=== PATIENT | female | born 1975 | race Caucasian/White ===

== ENCOUNTER 2017-08-01 21:12 | Emergency (ER) | payer MEDICAID ==
[~2017-08-01 21:12] MED LIST: AZIT250T13 PO; CYCL-1 PO; DIPH-423 PO; DIPH25CA83 PO; DIPH50CA3 PO; FERR142T6 PO; KETO10TA2 PO; MECL-111 PO; METH-360 PO; ONDA4TAB12 PO; SYN0.1T PO
[2017-08-01 21:28] VITALS: BP 133/88
== END 2017-08-01 21:30 | disposition left against medical advice (07) ==
LOC: ER 21:12
DX: S00.93XA Contusion of unspecified part of head, initial encounter (principal); Z53.21 Procedure and treatment not carried out due to patient leaving prior to being seen by health care provider; X58.XXXA Exposure to other specified factors, initial encounter; Y93.89 Activity, other specified; Y92.89 Other specified places as the place of occurrence of the external cause; Y99.8 Other external cause status

== ENCOUNTER 2017-08-15 06:25 | Emergency (ER) | payer MEDICAID ==
[~2017-08-15] VITALS: Ht 149.9 cm; Wt 94.0 kg
[2017-08-15 06:31] VITALS: BP 142/75
[2017-08-15] MEDS ORDERED: LEVO200T PO (07:02)
[2017-08-15] MEDS ORDERED: LEVO25TA2 PO (07:02)
[2017-08-15] MEDS ORDERED: ibuprofen tablet 400 MG TABLET PO ONE (07:10)
== END 2017-08-15 07:21 | disposition home or self-care (01) ==
LOC: ER 06:26
DX: S60.222A Contusion of left hand, initial encounter (principal); S60.221A Contusion of right hand, initial encounter; E11.9 Type 2 diabetes mellitus without complications; F15.10 Other stimulant abuse, uncomplicated; Z88.8 Allergy status to other drugs, medicaments and biological substances; Z76.0 Encounter for issue of repeat prescription; W18.30XA Fall on same level, unspecified, initial encounter; Y93.89 Activity, other specified; Y92.89 Other specified places as the place of occurrence of the external cause; Y99.8 Other external cause status
CPT/HCPCS: 73130; 99284; A6449

== ENCOUNTER 2018-02-14 08:37 | Emergency (ER) | payer MEDICAID ==
[~2018-02-14] VITALS: Ht 149.9 cm; Wt 97.9 kg
[~2018-02-14 08:37] MED LIST changes: +LEVO200T PO
[2018-02-14 09:45] LABS: BASOPHILS % (AUTO) 0.3 % (0-1); EOSINOPHILS # (AUTO) 0.6 X10'3 (0-0.9); EOSINOPHILS % (AUTO) 4.2 % (0-6); HEMATOCRIT 41.2 % (35.0-45.0); HEMOGLOBIN 13.9 g/dl (12.0-16.0); LYMPHOCYTES # (AUTO) 2.6 X10'3 (1.1-4.8); LYMPHOCYTES % (AUTO) 19.3 % (21-51); MEAN CORPUSCULAR HEMOGLOBIN 29.3 PG (27.0-31.0); MEAN CORPUSCULAR HGB CONC 33.7 % (33.0-36.5); MEAN CORPUSCULAR VOLUME 86.9 FL (78-98); MEAN PLATELET VOLUME 9.8 FL (7.4-10.4); MONOCYTES # (AUTO) 0.5 X10'3 (0-0.9); MONOCYTES % (AUTO) 3.7 % (2-12); NEUTROPHILS # (AUTO) 9.9 X10'3 (1.8-7.7); NEUTROPHILS % (AUTO) 72.5 % (42-75); PLATELET COUNT 282 X10'3 (140-440); RED BLOOD COUNT 4.75 X10'6 (4.20-5.60); RED CELL DISTRIBUTION WIDTH 13.4 % (11.5-14.5); WHITE BLOOD COUNT 13.7 X10'3 (4.5-11.0)
[2018-02-14] MEDS ORDERED: pantoprazole 40mg Tablet.DR PO ONE (10:00)
[2018-02-14] MEDS ORDERED: mag hydrox/Alum hydrox/simeth 30ml oral suspension PO ONE (10:00)
[2018-02-14 10:12] LABS: ALANINE AMINOTRANSFERASE 20 U/L (12-78); ALBUMIN 3.1 G/DL (3.4-5.0); ALBUMIN/GLOBULIN RATIO 0.7 (1.1-1.5); ALKALINE PHOSPHATASE 121 IU/L (46-116); ANION GAP 13 (8-16); ASPARTATE AMINO TRANSFERASE 9 U/L (10-37); BILIRUBIN,TOTAL 0.2 MG/DL (0.1-1.0); BLOOD UREA NITROGEN 11 MG/DL (7-18); BUN/CREATININE RATIO 15.9 (6.6-38.0); CALCIUM 9.2 MG/DL (8.5-10.1); CHLORIDE 97 MMOL/L (99-107); CREATININE 0.69 MG/DL (0.40-0.90); GLUCOSE 224 MG/DL (70-104); POTASSIUM 3.9 MMOL/L (3.5-5.1); SODIUM 134 MMOL/L (135-145); TOTAL CARBON DIOXIDE 24.1 MMOL/L (24-32); TOTAL PROTEIN 7.8 G/DL (6.4-8.2); eGFR > 90 ML/MIN
[2018-02-14 10:40] LABS: URINE HCG NEGATIVE (NEG)
[2018-02-14 11:06] LABS: CLARITY,URINE SLIGHTLY CLOUDY (Clear); COLOR,URINE YELLOW (Yellow); GLUCOSE, URINE >=1000 mg/dl (Neg); KETONES,URINE NEGATIVE (Neg); LEUKOCYTE ESTERASE ,URINE NEGATIVE (Neg); NITRITES, URINE NEGATIVE (Neg); OCCULT BLOOD,URINE NEGATIVE (Neg); PROTEIN,URINE NEGATIVE (Neg); UROBILINOGEN,URINE 0.2 E.U/dL (0.2-1.0)
[2018-02-14 11:07] LABS: UA COLLECTION TYPE CLN CATCH MIDSTREAM
[2018-02-14 11:16] LABS: BACTERIA,URINE 4+ /HPF (Neg); RBC,URINE NONE SEEN /HPF (0-2); SQUAMOUS EPITHELIAL CELL,UR MANY /LPF (FEW); WBC,URINE NONE SEEN /HPF (0-4)
[2018-02-14 11:18] VITALS: BP 132/97
== END 2018-02-14 11:19 | disposition home or self-care (01) ==
LOC: ER 08:37
DX: R10.30 Lower abdominal pain, unspecified (principal); E11.9 Type 2 diabetes mellitus without complications; G89.29 Other chronic pain; F15.90 Other stimulant use, unspecified, uncomplicated; Z90.710 Acquired absence of both cervix and uterus; Z88.8 Allergy status to other drugs, medicaments and biological substances; Z79.2 Long term (current) use of antibiotics; Z79.899 Other long term (current) drug therapy; Z56.0 Unemployment, unspecified
CPT/HCPCS: 36415; 80053; 81001; 81025; 85025; 99283

== ENCOUNTER 2018-06-11 09:14 | Emergency (ER) | payer MEDICAID ==
[~2018-06-11] VITALS: Ht 149.9 cm; Wt 93.0 kg
[2018-06-11 09:17] VITALS: BP 121/88
== END 2018-06-11 10:20 | disposition home or self-care (01) ==
LOC: ER 09:14
DX: R14.0 Abdominal distension (gaseous) (principal); F17.200 Nicotine dependence, unspecified, uncomplicated; R06.2 Wheezing; E11.9 Type 2 diabetes mellitus without complications; E07.9 Disorder of thyroid, unspecified; G89.29 Other chronic pain; F15.90 Other stimulant use, unspecified, uncomplicated; Z90.710 Acquired absence of both cervix and uterus; Z56.0 Unemployment, unspecified; Z88.8 Allergy status to other drugs, medicaments and biological substances; Z79.2 Long term (current) use of antibiotics; Z79.899 Other long term (current) drug therapy
CPT/HCPCS: 99281

== ENCOUNTER 2019-05-18 15:30 | Emergency (ER) | payer MEDICAID ==
[~2019-05-18] VITALS: Ht 149.9 cm; Wt 93.9 kg
[~2019-05-18 15:30] MED LIST changes: -MECL-111 PO; +MECL-159 PO
[2019-05-18 16:05] LABS: BASOPHILS # (AUTO) 0.1 X10'3 (0-0.2); BASOPHILS % (AUTO) 1.1 % (0-1); EOSINOPHILS # (AUTO) 0.1 X10'3 (0-0.9); EOSINOPHILS % (AUTO) 1.1 % (0-6); HEMATOCRIT 41.9 % (35.0-45.0); HEMOGLOBIN 14.2 g/dl (12.0-16.0); LYMPHOCYTES # (AUTO) 3.5 X10'3 (1.1-4.8); LYMPHOCYTES % (AUTO) 27.3 % (21-51); MEAN CORPUSCULAR HGB CONC 33.8 g/dL (33.0-36.5); MEAN CORPUSCULAR VOLUME 88.8 FL (78-98); MEAN PLATELET VOLUME 10.4 FL (7.4-10.4); MONOCYTES # (AUTO) 0.6 X10'3 (0-0.9); MONOCYTES % (AUTO) 5.1 % (2-12); NEUTROPHILS # (AUTO) 8.2 X10'3 (1.8-7.7); NEUTROPHILS % (AUTO) 65.4 % (42-75); PLATELET COUNT 306 X10'3 (140-440); RED BLOOD COUNT 4.72 X10'6 (4.20-5.60); RED CELL DISTRIBUTION WIDTH 13.8 % (11.5-14.5); WHITE BLOOD COUNT 12.6 X10'3 (4.5-11.0)
[2019-05-18 16:14] LABS: ALANINE AMINOTRANSFERASE 21 U/L (12-78); ALBUMIN 3.1 G/DL (3.4-5.0); ALBUMIN/GLOBULIN RATIO 0.7 (1.1-1.5); ALKALINE PHOSPHATASE 84 IU/L (46-116); ANION GAP 7 (8-16); ASPARTATE AMINO TRANSFERASE 12 U/L (10-37); BILIRUBIN,TOTAL 0.2 MG/DL (0.1-1.0); BLOOD UREA NITROGEN 14 MG/DL (7-18); BUN/CREATININE RATIO 15.6 (6.6-38.0); CALCIUM 8.8 MG/DL (8.5-10.1); CHLORIDE 104 MMOL/L (99-107); GLUCOSE 168 MG/DL (70-104); POTASSIUM 3.9 MMOL/L (3.5-5.1); SODIUM 139 MMOL/L (135-145); TOTAL CARBON DIOXIDE 28.2 MMOL/L (24-32); TOTAL PROTEIN 7.4 G/DL (6.4-8.2); eGFR 68 ML/MIN
[2019-05-18 16:31] LABS: LARGE PLATELETS FEW; PLATELET ESTIMATE NORMAL; TOTAL CELLS COUNTED 100
[2019-05-18 16:35] VITALS: BP 154/93
== END 2019-05-18 17:22 | disposition home or self-care (01) ==
LOC: ER 15:30
DX: R07.89 Other chest pain (principal); E11.9 Type 2 diabetes mellitus without complications; G89.29 Other chronic pain; F15.90 Other stimulant use, unspecified, uncomplicated; F17.210 Nicotine dependence, cigarettes, uncomplicated; Z90.710 Acquired absence of both cervix and uterus; Z56.0 Unemployment, unspecified; Z88.8 Allergy status to other drugs, medicaments and biological substances; Z79.2 Long term (current) use of antibiotics; Z79.899 Other long term (current) drug therapy
CPT/HCPCS: 36415; 71045; 80053; 84484; 85025; 93005; 99285

== ENCOUNTER 2019-10-02 08:36 | Inpatient (IN) | payer MEDICAID ==
[~2019-10-02] VITALS: Ht 149.9 cm; Wt 100.0 kg
[2019-10-02] MEDS ORDERED: normal saline 1000ML IV soln IVB ONE (08:55)
[2019-10-02] MEDS: morphine 4 MG/ML inj SYRINge IV PRN ×2 (09:25→09:51)
[2019-10-02 09:30] LABS: BASOPHILS # (AUTO) 0.1 X10'3 (0-0.2); BASOPHILS % (AUTO) 1.1 % (0-1); EOSINOPHILS # (AUTO) 0.2 X10'3 (0-0.9); EOSINOPHILS % (AUTO) 1.3 % (0-6); HEMATOCRIT 40.9 % (35.0-45.0); HEMOGLOBIN 13.4 g/dl (12.0-16.0); LYMPHOCYTES # (AUTO) 3.6 X10'3 (1.1-4.8); LYMPHOCYTES % (AUTO) 29.3 % (21-51); MEAN CORPUSCULAR HEMOGLOBIN 29.5 PG (27.0-31.0); MEAN CORPUSCULAR HGB CONC 32.9 g/dL (33.0-36.5); MEAN CORPUSCULAR VOLUME 89.7 FL (78-98); MEAN PLATELET VOLUME 10.6 FL (7.4-10.4); MONOCYTES # (AUTO) 0.7 X10'3 (0-0.9); MONOCYTES % (AUTO) 5.6 % (2-12); NEUTROPHILS # (AUTO) 7.6 X10'3 (1.8-7.7); NEUTROPHILS % (AUTO) 62.7 % (42-75); PLATELET COUNT 286 X10'3 (140-440); RED BLOOD COUNT 4.56 X10'6 (4.20-5.60); RED CELL DISTRIBUTION WIDTH 14.1 % (11.5-14.5); WHITE BLOOD COUNT 12.1 X10'3 (4.5-11.0)
--- NOTE | 2019-10-02 09:32 | NUR ---
US at bedside
[2019-10-02 10:14] LABS: ALANINE AMINOTRANSFERASE 19 U/L (12-78); ALBUMIN 2.9 G/DL (3.4-5.0); ALBUMIN/GLOBULIN RATIO 0.7 (1.1-1.5); ALKALINE PHOSPHATASE 74 IU/L (46-116); ANION GAP 10 (8-16); ASPARTATE AMINO TRANSFERASE 12 U/L (10-37); BILIRUBIN,TOTAL 0.2 MG/DL (0.1-1.0); BLOOD UREA NITROGEN 12 MG/DL (7-18); BUN/CREATININE RATIO 13.6 (6.6-38.0); CALCIUM 9.4 MG/DL (8.5-10.1); CHLORIDE 104 MMOL/L (99-107); CREATININE 0.88 MG/DL (0.40-0.90); ETHANOL < 0.010 GM/DL (0.0-0.010); GLUCOSE 187 MG/DL (70-104); LIPASE 100 U/L (73-393); POTASSIUM 3.8 MMOL/L (3.5-5.1); SODIUM 138 MMOL/L (135-145); TOTAL CARBON DIOXIDE 23.7 MMOL/L (24-32); TOTAL PROTEIN 6.8 G/DL (6.4-8.2); eGFR 70 ML/MIN
[2019-10-02 10:25] LABS: URINE HCG NEGATIVE (NEG)
[2019-10-02 10:26] LABS: CLARITY,URINE CLEAR (Clear); COLOR,URINE YELLOW (Yellow); GLUCOSE, URINE NEGATIVE (Neg); KETONES,URINE NEGATIVE (Neg); LEUKOCYTE ESTERASE ,URINE NEGATIVE (Neg); NITRITES, URINE NEGATIVE (Neg); OCCULT BLOOD,URINE NEGATIVE (Neg); PROTEIN,URINE NEGATIVE (Neg); UROBILINOGEN,URINE 0.2 E.U/dL (0.2-1.0)
[2019-10-02 10:27] LABS: UA COLLECTION TYPE CLN CATCH MIDSTREAM
[2019-10-02 10:31] LABS: URINE AMPHETAMINE SCREEN POSITIVE (Neg); URINE BARBITUATE SCREEN NEGATIVE (Neg); URINE BENZODIAZEPINES SCREEN NEGATIVE (Neg); URINE CANNABINOID SCREEN NEGATIVE (Neg); URINE COCAINE SCREEN NEGATIVE (Neg); URINE METHADONE SCREEN NEGATIVE (Neg); URINE OPIATE SCREEN POSITIVE (Neg); URINE PHENCYCLIDINE SCREEN NEGATIVE (Neg)
[2019-10-02] MEDS ORDERED: METF500T PO (11:07)
[2019-10-02] MEDS: normal saline 1000ml 1,000 ML IV SCH ×2 (11:22→21:22)
[2019-10-02] MEDS ORDERED: ondansetron/PF 4mg/2ml inj IV PRN (11:25)
[2019-10-02] MEDS ORDERED: morphine 2 MG/ML inj. syringe IV PRN ×2 (11:25)
[2019-10-02] MEDS ORDERED: magnesium hydroxide 30ml (MOM) UD suspension PO PRN (11:25)
[2019-10-02] MEDS ORDERED: HYDROcodone/acetaminophen 10/325mg tab PO PRN (11:25)
[2019-10-02] MEDS ORDERED: HYDROcodone/acetaminophen 5mg/325mg tablet PO PRN (11:25)
[2019-10-02] MEDS ORDERED: acetaminophen 325mg tablet PO PRN ×2 (11:25)
[2019-10-02] MEDS ORDERED: mag hydrox/Alum hydrox/simeth 30ml oral suspension PO PRN (11:25)
[2019-10-02] MEDS ORDERED: metoclopramide 5 mg/ml inj IV PRN (11:25)
[2019-10-02 11:48] LABS: HEMOGLOBIN A1C 7.2 % (4.5-6.2)
--- NOTE | 2019-10-02 12:14 | NUR ---
Patient in room ED 11. I have received report from Leeann BRUNO at ED and had the opportunity to ask questions and assume patient care.
[2019-10-02] MEDS ORDERED: dextrose 50%-water 50ml dispensing syringe IV PRN ×2 (12:40)
[2019-10-02] MEDS ORDERED: dextrose ORAL solution 15 GM/59 ML bottle PO PRN ×2 (12:40)
[2019-10-02] MEDS ORDERED: insulin Lispro (HumaLOG) vial - multi-dose SQ SCH (12:40)
[2019-10-02] MEDS ORDERED: MESSAGE TO PHARMACY PO ONE (12:40)
[2019-10-02] MEDS ORDERED: sincalide inj 2 MCG in normal saline 50ml IV soln 50 ML IV PRN (12:40)
[2019-10-02] MEDS ORDERED: glucagon, human recombinant 1mg kit SUBCUT PRN (12:40)
[2019-10-02] MEDS ORDERED: LEVO150T8 PO (12:45)
[2019-10-02] MEDS ORDERED: sincalide inj 2 MCG in normal saline 100ml IV soln 100 ML IV PRN (13:54)
[2019-10-02] MEDS ORDERED: morphine 4 MG/ML inj SYRINge IV ONE (16:35)
--- NOTE | 2019-10-02 18:00 | NUR ---
MEDICATION ADMINISTERED WHEN PT WENT TO [facility] TO GET A HIDA SCAN. MED GIVEN AT NUCLEAR CT SITE. MARIYA THE TECH WITNESS AND HAD ME SIGN A DOCUMENT WHERE ADMINISTRATION WAS RECORDED AND THERE WAS NO REACTION TO THE 4MG OF MORPHINE. RECORD OF ADMINISTRATION IS AT NUCLEAR MEDICINE SITE. SPOKE TO DELIO CHARGE NURSE AND SHE IS AWARE OF THE SCANNING ISSUE. PHARMACY,[place] WAS NOTIFY OF THE ISSUE WELL.
--- NOTE | 2019-10-02 18:15 | NUR ---
Problems reprioritized. Patient report given, questions answered & plan of care reviewed with JOSEPH Messina RN.
--- NOTE | 2019-10-02 18:29 | NUR ---
Dr Encarnacion confirmed pt will not go to surgery tonight, okay to feed pt dinner now and NPO at midnight. Changed diet to CC, ordered tray, placed order for NPO @ midnight.
--- NOTE | 2019-10-02 18:30 | NUR ---
Patient in room [facility]. I have received report from KIANA Toro and had the opportunity to ask questions and assume patient care.
[2019-10-02 20:00] VITALS: BP 125/76
[2019-10-02] MEDS ORDERED: insulin glargine (Lantus) pen - multi-dose SQ SCH (21:00)
[2019-10-03] VITALS: BP 107/68
[2019-10-03 05:24] LABS: BASOPHILS # (AUTO) 0.1 X10'3 (0-0.2); BASOPHILS % (AUTO) 0.8 % (0-1); EOSINOPHILS # (AUTO) 0.2 X10'3 (0-0.9); EOSINOPHILS % (AUTO) 1.5 % (0-6); HEMATOCRIT 37.2 % (35.0-45.0); HEMOGLOBIN 12.2 g/dl (12.0-16.0); LYMPHOCYTES % (AUTO) 33.6 % (21-51); MEAN CORPUSCULAR HEMOGLOBIN 29.5 PG (27.0-31.0); MEAN CORPUSCULAR HGB CONC 32.7 g/dL (33.0-36.5); MONOCYTES # (AUTO) 0.5 X10'3 (0-0.9); MONOCYTES % (AUTO) 4.5 % (2-12); NEUTROPHILS # (AUTO) 7.2 X10'3 (1.8-7.7); NEUTROPHILS % (AUTO) 59.6 % (42-75); PLATELET COUNT 253 X10'3 (140-440); RED BLOOD COUNT 4.14 X10'6 (4.20-5.60); RED CELL DISTRIBUTION WIDTH 14.1 % (11.5-14.5); WHITE BLOOD COUNT 12.1 X10'3 (4.5-11.0)
[2019-10-03 05:32] LABS: ALBUMIN 2.4 G/DL (3.4-5.0); ANION GAP 5 (8-16); BLOOD UREA NITROGEN 8 MG/DL (7-18); BUN/CREATININE RATIO 9.2 (6.6-38.0); CALCIUM 8.1 MG/DL (8.5-10.1); CHLORIDE 105 MMOL/L (99-107); CREATININE 0.87 MG/DL (0.40-0.90); GLUCOSE 131 MG/DL (70-104); POTASSIUM 3.9 MMOL/L (3.5-5.1); SODIUM 137 MMOL/L (135-145); TOTAL CARBON DIOXIDE 26.8 MMOL/L (24-32); eGFR 71 ML/MIN
--- NOTE | 2019-10-03 06:24 | NUR ---
Problems reprioritized. Patient report given, questions answered & plan of care reviewed with KIANA Dubon.
[2019-10-03 06:51] LABS: TOTAL CELLS COUNTED 100
[2019-10-03 06:52] LABS: PLATELET ESTIMATE NORMAL
[2019-10-03 06:54] LABS: LARGE PLATELETS MODERATE; SMUDGE CELLS FEW
[2019-10-03 06:55] LABS: POIKILOCYTOSIS FEW
[2019-10-03 06:56] LABS: ELLIPTOCYTES FEW
[2019-10-03 06:57] LABS: ACANTHOCYTES FEW; ANISOCYTOSIS FEW; TOXIC GRANULATION 1+
[2019-10-03 07:00] VITALS: BP 133/79
[2019-10-03] MEDS ORDERED: levoTHYROXINE 75mcg tablet PO SCH (07:00)
--- NOTE | 2019-10-03 07:05 | NUR ---
I have received report from Shannan Sutherland RN and had the opportunity to ask questions and assume patient care.
[2019-10-03] MEDS: normal saline 1000ml 1,000 ML IV SCH (07:22)
[2019-10-03] MEDS ORDERED: levoTHYROXINE 100mcg tablet PO SCH ×2 (08:00)
[2019-10-03] MEDS ORDERED: metFORMIN 500mg tablet PO SCH (08:00)
--- NOTE | 2019-10-03 09:30 | NUR ---
Dr Barrera notified patient is refusing surgery.
[2019-10-03 10:32] LABS: PARTIAL THROMBOPLASTIN TIME 26 SECONDS (22-32)
[2019-10-03] MEDS ORDERED: LEVO500T2 PO (10:49)
[2019-10-03] MEDS ORDERED: METR-159 PO (10:49)
[2019-10-03] MEDS ORDERED: METF-950 PO (10:51)
--- NOTE | 2019-10-03 10:51 | NUR ---
Patient to be discharged, [place] at patients expense and request.
--- NOTE | 2019-10-03 11:16 | NUR ---
Patient discharged. WC to lobby by staff, IV discontinued intact, patient tolerated well. VS stable, no distress noted. Education completed with acknowledgement from patient verbally. Paper work reviewed and signed. Patient aware of next doses for home medications. No new medication on admit.
--- NOTE | 2019-10-03 11:25 | NUR ---
DM Consult: A1C 7.5. Pt seen by YNES for written/verbal DM ed w/ RD contact information provided. Pt quite passive during ed; denies food allergies, issues chewing swallowing, or any GI symptoms at this time. Addendum: 10/03/19 at [address] Amended: Links added.
== END 2019-10-03 11:16 | disposition home or self-care (01) ==
LOC: ER 08:37 → ED HOLD 11:22 → SUR 3N 12:19 → OBSVTOIN 14:00
PROVIDERS: ADMIT Internal Medicine; ATTEND Internal Medicine
DX: K80.00 Calculus of gallbladder with acute cholecystitis without obstruction (principal); E03.9 Hypothyroidism, unspecified; E11.9 Type 2 diabetes mellitus without complications; E66.01 Morbid (severe) obesity due to excess calories; F17.210 Nicotine dependence, cigarettes, uncomplicated; K82.8 Other specified diseases of gallbladder; Z68.41 Body mass index [BMI] 40.0-44.9, adult; Z79.84 Long term (current) use of oral hypoglycemic drugs; Z90.710 Acquired absence of both cervix and uterus; R16.0 Hepatomegaly, not elsewhere classified
CPT/HCPCS: 36415; 71045; 74176; 76700; 78227; 80048; 80053; 80305; 80320; 81003; 81025; 82948; 83036; 83690; 83880; 85025; 85610; 85730; 87081; 96361; 96374; 99285; A9537; G0378; J1815; J2270; J7030

== ENCOUNTER 2020-01-15 18:44 | Emergency (ER) | payer MEDICAID ==
[~2020-01-15] VITALS: Ht 149.9 cm; Wt 97.7 kg
[~2020-01-15 18:44] MED LIST changes: -AZIT250T13 PO; -CYCL-1 PO; -DIPH-423 PO; -DIPH25CA83 PO; -DIPH50CA3 PO; -FERR142T6 PO; -KETO10TA2 PO; +LEVO150T8 PO; -LEVO200T PO; -MECL-159 PO; -METH-360 PO; -ONDA4TAB12 PO; -SYN0.1T PO
[2020-01-15 18:47] VITALS: BP 149/94
== END 2020-01-15 19:22 | disposition home or self-care (01) ==
LOC: ER 18:45
DX: J06.9 Acute upper respiratory infection, unspecified (principal); Z20.828 Contact with and (suspected) exposure to other viral communicable diseases; E11.9 Type 2 diabetes mellitus without complications; G89.29 Other chronic pain; F17.210 Nicotine dependence, cigarettes, uncomplicated; F15.90 Other stimulant use, unspecified, uncomplicated; Z90.710 Acquired absence of both cervix and uterus; Z56.0 Unemployment, unspecified; Z88.8 Allergy status to other drugs, medicaments and biological substances; Z79.899 Other long term (current) drug therapy
CPT/HCPCS: 36415; 87635; 99283

== ENCOUNTER 2021-12-19 22:12 | Emergency (ER) | payer MEDICAID ==
[~2021-12-19] VITALS: Ht 149.9 cm; Wt 95.5 kg
[2021-12-19 22:19] VITALS: BP 126/82
[2021-12-20] MEDS ORDERED: HYDR28CR14 TOP (02:49)
[2021-12-20] MEDS ORDERED: DIPH-423 PO (02:49)
== END 2021-12-20 00:48 | disposition left against medical advice (07) ==
LOC: ER 22:13
DX: R21 Rash and other nonspecific skin eruption (principal); Z53.21 Procedure and treatment not carried out due to patient leaving prior to being seen by health care provider

== ENCOUNTER 2021-12-20 02:08 | Emergency (ER) | payer MEDICAID ==
[~2021-12-20] VITALS: Ht 162.6 cm; Wt 81.8 kg
[2021-12-20] MEDS ORDERED: DIPH-423 PO (02:49)
[2021-12-20] MEDS ORDERED: HYDR28CR14 TOP (02:49)
[2021-12-20 02:50] VITALS: BP 126/80
[2021-12-20] MEDS ORDERED: hydrocortisone 1% cream 28gm TP SCH (02:50)
[2021-12-20] MEDS ORDERED: diphenhydrAMINE 25mg capsule PO ONE (02:50)
== END 2021-12-20 03:27 | disposition home or self-care (01) ==
LOC: ER 02:09
DX: R21 Rash and other nonspecific skin eruption (principal); E11.9 Type 2 diabetes mellitus without complications; G89.29 Other chronic pain; M54.50 Low back pain, unspecified; F15.20 Other stimulant dependence, uncomplicated; Z88.8 Allergy status to other drugs, medicaments and biological substances; Z90.710 Acquired absence of both cervix and uterus; Z56.0 Unemployment, unspecified
CPT/HCPCS: 99283; Q0163

== ENCOUNTER 2021-12-25 22:53 | Emergency (ER) | payer MEDICAID ==
[~2021-12-25 22:53] MED LIST changes: +DIPH-423 PO; +HYDR28CR14 TOP
== END 2021-12-25 23:17 | disposition left against medical advice (07) ==
LOC: ER 22:54
DX: H92.09 Otalgia, unspecified ear (principal); Z53.21 Procedure and treatment not carried out due to patient leaving prior to being seen by health care provider

== ENCOUNTER 2022-02-08 16:02 | Emergency (ER) | payer MEDICAID ==
[~2022-02-08] VITALS: Ht 149.9 cm; Wt 108.0 kg
[2022-02-08 16:06] VITALS: BP 152/128
== END 2022-02-08 20:23 | disposition left against medical advice (07) ==
LOC: ER 16:03
DX: M54.59 Other low back pain (principal); Z53.21 Procedure and treatment not carried out due to patient leaving prior to being seen by health care provider

== ENCOUNTER 2022-03-19 10:51 | Emergency (ER) | payer MEDICAID ==
[~2022-03-19] VITALS: Ht 154.9 cm; Wt 100.0 kg
[2022-03-19 11:05] VITALS: BP 163/92
[2022-03-19] MEDS ORDERED: HYDROcodone/acetaminophen 5mg/325mg tablet PO ONE (12:20)
[2022-03-19] MEDS ORDERED: HYDR-3965 PO (13:57)
== END 2022-03-19 14:07 | disposition home or self-care (01) ==
LOC: ER 10:52
DX: M54.50 Low back pain, unspecified (principal); E11.9 Type 2 diabetes mellitus without complications; G89.29 Other chronic pain; F15.90 Other stimulant use, unspecified, uncomplicated; F17.210 Nicotine dependence, cigarettes, uncomplicated; Z56.0 Unemployment, unspecified; Z88.8 Allergy status to other drugs, medicaments and biological substances; Z79.899 Other long term (current) drug therapy
CPT/HCPCS: 72100; 99283

== ENCOUNTER 2022-05-19 07:45 | Emergency (ER) | payer MEDICAID ==
[~2022-05-19] VITALS: Ht 149.9 cm; Wt 107.6 kg
[2022-05-19 10:14] VITALS: BP 133/81
== END 2022-05-19 10:34 | disposition home or self-care (01) ==
LOC: ER 07:45
DX: N89.8 Other specified noninflammatory disorders of vagina (principal); G89.29 Other chronic pain; E11.9 Type 2 diabetes mellitus without complications; F15.90 Other stimulant use, unspecified, uncomplicated; F17.210 Nicotine dependence, cigarettes, uncomplicated; Z72.89 Other problems related to lifestyle; Z90.710 Acquired absence of both cervix and uterus; Z56.0 Unemployment, unspecified; Z88.8 Allergy status to other drugs, medicaments and biological substances; Z79.899 Other long term (current) drug therapy
CPT/HCPCS: 99284

== ENCOUNTER 2023-08-07 12:15 | Emergency (ER) | payer MEDICAID ==
[~2023-08-07] VITALS: Ht 149.9 cm; Wt 110.0 kg
[2023-08-07 12:18] VITALS: BP 160/90; PULSE 89; TEMP 98.1; O2SAT 96
[2023-08-07 13:47] VITALS: RESP 16
[2023-08-07 14:47] LABS: BILIRUBIN,URINE NEGATIVE (Neg); CLARITY,URINE CLEAR (Clear); COLOR,URINE YELLOW (Yellow); GLUCOSE, URINE NEGATIVE (Neg); KETONES,URINE NEGATIVE (Neg); LEUKOCYTE ESTERASE ,URINE NEGATIVE (Neg); NITRITES, URINE NEGATIVE (Neg); OCCULT BLOOD,URINE NEGATIVE (Neg); PH,URINE 6.5 (4.8-8.0); PROTEIN,URINE NEGATIVE (Neg)
[2023-08-07 14:48] LABS: URINE HCG NEGATIVE (NEG)
[2023-08-07 14:55] LABS: UA COLLECTION TYPE STRAIGHT CATH
== END 2023-08-07 15:07 | disposition home or self-care (01) ==
LOC: ER 12:16
DX: N76.89 Other specified inflammation of vagina and vulva (principal); E11.9 Type 2 diabetes mellitus without complications; F17.210 Nicotine dependence, cigarettes, uncomplicated; F15.10 Other stimulant abuse, uncomplicated; Z88.4 Allergy status to anesthetic agent; Z88.8 Allergy status to other drugs, medicaments and biological substances
CPT/HCPCS: 72170; 81003; 81025; 99284; A6449

== ENCOUNTER 2023-08-22 15:22 | Emergency (ER) | payer MEDICAID ==
[~2023-08-22] VITALS: Ht 149.9 cm; Wt 93.2 kg
[2023-08-22 17:46] LABS: HEMATOCRIT 33.6 % (35.0-45.0); MEAN PLATELET VOLUME 10.3 FL (7.4-10.4); RED BLOOD COUNT 3.58 X10'6 (4.20-5.60)
[2023-08-22 17:47] LABS: BASOPHILS # (AUTO) 0.1 X10'3 (0-0.2); BASOPHILS % (AUTO) 1.1 % (0-1); EOSINOPHILS # (AUTO) 0.2 X10'3 (0-0.9); EOSINOPHILS % (AUTO) 1.9 % (0-6); HEMOGLOBIN 11.4 g/dl (12.0-16.0); MEAN CORPUSCULAR HEMOGLOBIN 31.9 PG (27.0-31.0); MEAN CORPUSCULAR HGB CONC 33.9 g/dL (33.0-36.5); MEAN CORPUSCULAR VOLUME 93.9 FL (78-98); MONOCYTES # (AUTO) 0.4 X10'3 (0-0.9); MONOCYTES % (AUTO) 4.1 % (2-12); NEUTROPHILS # (AUTO) 6.7 X10'3 (1.8-7.7); NEUTROPHILS % (AUTO) 63.9 % (42-75); PLATELET COUNT 233 X10'3 (140-440); RED CELL DISTRIBUTION WIDTH 16.2 % (11.5-14.5); WHITE BLOOD COUNT 10.4 X10'3 (4.5-11.0)
[2023-08-22 17:48] VITALS: BP 124/80; PULSE 90; TEMP 97.9; O2SAT 98
[2023-08-22 17:57] LABS: ALANINE AMINOTRANSFERASE 34 U/L (12-78); ALBUMIN 3.3 G/DL (3.4-5.0); ALBUMIN/GLOBULIN RATIO 0.9 (1.1-1.5); ALKALINE PHOSPHATASE 44 IU/L (46-116); ANION GAP 6 (8-16); ASPARTATE AMINO TRANSFERASE 16 U/L (10-37); BILIRUBIN,TOTAL 0.4 MG/DL (0.1-1.0); BLOOD UREA NITROGEN 17 MG/DL (7-18); CALCIUM 8.6 MG/DL (8.5-10.1); CHLORIDE 103 MMOL/L (99-107); CREATININE 1.06 MG/DL (0.40-0.90); GLUCOSE 146 MG/DL (70-104); POTASSIUM 3.9 MMOL/L (3.5-5.1); SODIUM 139 MMOL/L (135-145); TOTAL CARBON DIOXIDE 29.7 MMOL/L (24-32); TOTAL PROTEIN 6.9 G/DL (6.4-8.2); URIC ACID 4.9 MG/DL (2.5-6.2); eCRCL 45 ML/MIN; eGFR 56 ML/MIN
[2023-08-22 18:00] VITALS: RESP 16
[2023-08-22] MEDS: ketorolac trometh. 30mg/ml inj. IM ONE (18:00)
[2023-08-22 18:01] LABS: ANISOCYTOSIS 1+; D-DIMER 0.82 MG/L FEU (0-0.50); PLATELET ESTIMATE NORMAL; TOTAL CELLS COUNTED 100
== END 2023-08-22 18:28 | disposition home or self-care (01) ==
LOC: ER 15:22
DX: R60.0 Localized edema (principal); M79.672 Pain in left foot; M25.572 Pain in left ankle and joints of left foot; E11.9 Type 2 diabetes mellitus without complications; G89.29 Other chronic pain; M54.9 Dorsalgia, unspecified; E07.9 Disorder of thyroid, unspecified; F15.90 Other stimulant use, unspecified, uncomplicated; F17.290 Nicotine dependence, other tobacco product, uncomplicated; Z88.8 Allergy status to other drugs, medicaments and biological substances; Z56.0 Unemployment, unspecified; Z79.899 Other long term (current) drug therapy; Z90.710 Acquired absence of both cervix and uterus; Z72.89 Other problems related to lifestyle
CPT/HCPCS: 36415; 73630; 80053; 84550; 85007; 85025; 85379; 96372; 99284; J1885

== ENCOUNTER 2023-10-29 14:35 | Emergency (ER) | payer MEDICAID ==
[~2023-10-29] VITALS: Ht 149.9 cm; Wt 110.6 kg
[2023-10-29] MEDS ORDERED: CEPH-585 PO (15:07)
[2023-10-29 15:15] VITALS: BP 142/88; PULSE 88; RESP 18; TEMP 98; O2SAT 97
== END 2023-10-29 15:17 | disposition home or self-care (01) ==
LOC: ER 14:36
DX: M79.672 Pain in left foot (principal); M79.671 Pain in right foot; R22.43 Localized swelling, mass and lump, lower limb, bilateral; E11.9 Type 2 diabetes mellitus without complications; G89.29 Other chronic pain; F17.210 Nicotine dependence, cigarettes, uncomplicated; Z87.81 Personal history of (healed) traumatic fracture; F15.90 Other stimulant use, unspecified, uncomplicated; E66.01 Morbid (severe) obesity due to excess calories; Z72.89 Other problems related to lifestyle; Z56.0 Unemployment, unspecified; Z90.710 Acquired absence of both cervix and uterus; Z88.8 Allergy status to other drugs, medicaments and biological substances; Z79.899 Other long term (current) drug therapy; Z68.42 Body mass index [BMI] 45.0-49.9, adult; Z59.02 Unsheltered homelessness
CPT/HCPCS: 99283

== ENCOUNTER 2024-01-10 14:12 | Emergency (ER) | payer MEDICAID ==
[~2024-01-10] VITALS: Ht 149.9 cm; Wt 111.4 kg
[2024-01-10 16:07] VITALS: BP 138/88; PULSE 88; RESP 18; TEMP 98.2; O2SAT 98
== END 2024-01-10 16:08 | disposition home or self-care (01) ==
LOC: ER 14:13
DX: H92.03 Otalgia, bilateral (principal); E11.9 Type 2 diabetes mellitus without complications; G89.29 Other chronic pain; M54.9 Dorsalgia, unspecified; F15.90 Other stimulant use, unspecified, uncomplicated; F17.290 Nicotine dependence, other tobacco product, uncomplicated; Z90.710 Acquired absence of both cervix and uterus; Z59.01 Sheltered homelessness; Z88.8 Allergy status to other drugs, medicaments and biological substances; Z79.899 Other long term (current) drug therapy; Z72.89 Other problems related to lifestyle; Z56.0 Unemployment, unspecified
CPT/HCPCS: 99282

== ENCOUNTER 2024-01-14 00:42 | Emergency (ER) | payer MEDICAID ==
[~2024-01-14] VITALS: Ht 149.9 cm; Wt 95.5 kg
[2024-01-14 00:43] VITALS: TEMP 97.9
[2024-01-14 04:05] VITALS: BP 181/106; PULSE 77; RESP 14; O2SAT 99
== END 2024-01-14 04:26 | disposition home or self-care (01) ==
LOC: ER 00:42
DX: M25.562 Pain in left knee (principal); E11.9 Type 2 diabetes mellitus without complications; G89.29 Other chronic pain; F17.210 Nicotine dependence, cigarettes, uncomplicated; Z88.8 Allergy status to other drugs, medicaments and biological substances; Z90.710 Acquired absence of both cervix and uterus; Z59.00 Homelessness unspecified; W19.XXXA Unspecified fall, initial encounter; Y93.89 Activity, other specified; Y92.89 Other specified places as the place of occurrence of the external cause; Y99.8 Other external cause status
CPT/HCPCS: 99284

== ENCOUNTER 2024-01-14 23:14 | Emergency (ER) | payer MEDICAID ==
[~2024-01-14] VITALS: Ht 160 cm; Wt 104.5 kg
[2024-01-14 23:20] VITALS: BP 155/90; PULSE 94; RESP 20; O2SAT 98
[2024-01-15 00:51] VITALS: TEMP 98.1
== END 2024-01-15 01:01 | disposition home or self-care (01) ==
LOC: ER 23:15
DX: M79.671 Pain in right foot (principal); M79.672 Pain in left foot; E11.9 Type 2 diabetes mellitus without complications; F17.210 Nicotine dependence, cigarettes, uncomplicated; F15.90 Other stimulant use, unspecified, uncomplicated; G89.29 Other chronic pain; Z88.8 Allergy status to other drugs, medicaments and biological substances; Z79.899 Other long term (current) drug therapy; Z90.710 Acquired absence of both cervix and uterus
CPT/HCPCS: 99281; A6449

== ENCOUNTER 2024-02-20 11:47 | Emergency (ER) | payer MEDICAID ==
[~2024-02-20] VITALS: Ht 149.9 cm; Wt 97.7 kg
[2024-02-20 12:08] VITALS: BP 161/91; PULSE 81; RESP 16; O2SAT 98
[2024-02-20] MEDS ORDERED: CEPH-585 PO (12:45)
[2024-02-20] MEDS ORDERED: NEOM10SO7 EACH EAR (12:45)
[2024-02-20 13:03] VITALS: TEMP 98
== END 2024-02-20 14:00 | disposition home or self-care (01) ==
LOC: ER 11:47
DX: H60.93 Unspecified otitis externa, bilateral (principal); E11.9 Type 2 diabetes mellitus without complications; G89.29 Other chronic pain; F17.290 Nicotine dependence, other tobacco product, uncomplicated; M54.9 Dorsalgia, unspecified; F15.90 Other stimulant use, unspecified, uncomplicated; Z72.89 Other problems related to lifestyle; Z56.0 Unemployment, unspecified; Z90.710 Acquired absence of both cervix and uterus; Z88.8 Allergy status to other drugs, medicaments and biological substances; Z79.899 Other long term (current) drug therapy
CPT/HCPCS: 99283

== ENCOUNTER 2024-03-16 11:27 | Emergency (ER) | payer MEDICAID ==
[~2024-03-16] VITALS: Ht 149.9 cm; Wt 99.7 kg
[~2024-03-16 11:27] MED LIST changes: +CEPH-585 PO; +NEOM10SO7 EACH EAR
[2024-03-16 11:35] VITALS: BP 186/107; PULSE 96; RESP 17; TEMP 97.9; O2SAT 100
[2024-03-16 14:38] LABS: BASOPHILS # (AUTO) 0.1 X10'3 (0-0.2); EOSINOPHILS # (AUTO) 0.2 X10'3 (0-0.9); HEMOGLOBIN 12.4 g/dl (12.0-16.0); LYMPHOCYTES # (AUTO) 3.2 X10'3 (1.1-4.8)
[2024-03-16 14:39] LABS: BASOPHILS % (AUTO) 0.9 % (0-1); EOSINOPHILS % (AUTO) 1.5 % (0-6); HEMATOCRIT 36.5 % (35.0-45.0); LYMPHOCYTES % (AUTO) 30.2 % (21-51); MEAN CORPUSCULAR HEMOGLOBIN 32.2 PG (27.0-31.0); MEAN CORPUSCULAR VOLUME 94.7 FL (78-98); MEAN PLATELET VOLUME 10.8 FL (7.4-10.4); MONOCYTES # (AUTO) 0.5 X10'3 (0-0.9); MONOCYTES % (AUTO) 4.6 % (2-12); NEUTROPHILS # (AUTO) 6.7 X10'3 (1.8-7.7); NEUTROPHILS % (AUTO) 62.8 % (42-75); PLATELET COUNT 276 X10'3 (140-440); RED BLOOD COUNT 3.85 X10'6 (4.20-5.60); RED CELL DISTRIBUTION WIDTH 14.7 % (11.5-14.5); WHITE BLOOD COUNT 10.7 X10'3 (4.5-11.0)
[2024-03-16 14:55] LABS: ALANINE AMINOTRANSFERASE 21 U/L (12-78); ALBUMIN 3.8 G/DL (3.4-5.0); ALBUMIN/GLOBULIN RATIO 0.9 (1.1-1.5); ALKALINE PHOSPHATASE 86 IU/L (46-116); ANION GAP 8 (8-16); ASPARTATE AMINO TRANSFERASE 13 U/L (10-37); BILIRUBIN,TOTAL 0.3 MG/DL (0.1-1.0); BLOOD UREA NITROGEN 17 MG/DL (7-18); BUN/CREATININE RATIO 21.8 (10.0-20.0); CALCIUM 9.1 MG/DL (8.5-10.1); CHLORIDE 96 MMOL/L (99-107); CREATININE 0.78 MG/DL (0.40-0.90); GLUCOSE 176 MG/DL (70-104); POTASSIUM 3.7 MMOL/L (3.5-5.1); SODIUM 135 MMOL/L (135-145); TOTAL PROTEIN 7.9 G/DL (6.4-8.2); eCRCL 60 ML/MIN; eGFR 79 ML/MIN
[2024-03-16 15:05] LABS: FREE T4 (FREE THYROXINE) 0.28 NG/DL (0.73-1.40)
[2024-03-16 15:16] LABS: THYROID STIMULATING HORMONE 153.25 ulU/ml (0.34-4.50)
[2024-03-16 15:19] LABS: ANISOCYTOSIS 1+; PLATELET ESTIMATE NORMAL; TOTAL CELLS COUNTED 100
[2024-03-16 15:21] LABS: LARGE PLATELETS FEW
[2024-03-16] MEDS ORDERED: LEVO150C4 PO (15:26)
== END 2024-03-16 15:49 | disposition home or self-care (01) ==
LOC: ER 11:27
DX: E03.9 Hypothyroidism, unspecified (principal); E11.9 Type 2 diabetes mellitus without complications; F15.90 Other stimulant use, unspecified, uncomplicated; F17.210 Nicotine dependence, cigarettes, uncomplicated; Z88.8 Allergy status to other drugs, medicaments and biological substances; Z90.710 Acquired absence of both cervix and uterus
CPT/HCPCS: 36415; 80053; 84439; 84443; 85007; 85025; 99283

== ENCOUNTER 2024-11-11 15:44 | Emergency (ER) | payer MEDICAID ==
[~2024-11-11] VITALS: Ht 149.9 cm; Wt 115.0 kg
[~2024-11-11 15:44] MED LIST changes: +LEVO150C5 PO
[2024-11-11 16:11] VITALS: TEMP 97.2
[2024-11-11 17:32] VITALS: BP 165/98; PULSE 83; RESP 20; O2SAT 95
[2024-11-11 17:33] LABS: LEUKOCYTE ESTERASE ,URINE NEGATIVE (Neg); NITRITES, URINE NEGATIVE (Neg); OCCULT BLOOD,URINE NEGATIVE (Neg)
[2024-11-11 17:36] LABS: UA COLLECTION TYPE STRAIGHT CATH
--- NOTE | 2024-11-11 18:05 | Physician Documentation ---
HPI ~ General Chief Complaint: See Chief Complaint Stated Complaint: MULTIPLE MED COMPLAINTS Time Seen by MD: 16:59 Primary Medical Doctor: lawrence callahan History of Present Illness HPI Comments Patient presents with multiple medical complaints. She states she has really bad ear infections these has been present for the past seven years. She complains of throbbing in her vaginal area. She complains of running out of her thyroid medication. States has been out of it for the past four years. Medication Reconciliation Allergies: Coded Allergies: aripiprazole (Verified Allergy, Unknown, 11/11/24) lurasidone (Unverified Allergy, Unknown, 11/11/24) ziprasidone (Verified Allergy, Unknown, 11/11/24) Scheduled Cephalexin*Monohydrate* (Keflex*), 1 CAP PO QID Hydrocortisone (hydrocortisone 1% cream), 1 APPLIC TOP Q12H Levothyroxine Sodium (Levothyroxine Sodium), 1 TAB PO DAILY, (Reported) Levothyroxine Sodium (Levothyroxine), 1 CAP PO DAILY Neomy Sulf/Polymyx B Sulf/Hc (Cortisporin Otic Solution), 4 DROP EACH EAR Q6H Scheduled PRN Diphenhydramine Hcl (Benadryl), 25 MG PO Q6H PRN ITCHING PRN for itching Past Medical History Past Medical History: Diabetes, Thyroid (unspecified), Chronic Back Pain, Extremity Fracture Past Surgical History: hysterectomy Smoking Status: Current every day smoker Alcohol Use: Occasionally Drug Use: methamphetamine Lives with: Family Lives In: Home Occupation: unemployed Past Social History: Cigar smoker x4 a day Review of Systems ROS Patient complains of ear pain, vaginal throbbing and running out of her thyroid medications. No fevers or chills. No head neck or back pain. Was asked, but otherwise denies review of systems. Physical Exam Physical Exam Vital Signs: Temperature: 97.2, Source: Oral, Heart Rate: 83, Respiratory Rate: 20, BP: 165/98, Pulse Oximetry: 95, Weight: 115.000 Oxygen Flow Rate: 0 Pulse Oximetry Reflects: adequate oxygenation Physical Exam gen: awake, alert. NAD CV: RRR lungs: clear GI: abd large, nontender to palpation. ext vaginal: No erythema. No vaginal discharge. There is feces present around the perineum. Ears: Tympanic membranes pearly cho with normal light reflex. External auditory canal without erythema or swelling. No pain over the pinna Progress Results/Orders Results/Orders Orders - SANGEETHA LOPEZ CONTINUITY MANAGER Straight Cath For Urine Sample (11/11/24 17:03) Completed Orders - SANGEETHA LOPEZ CONTINUITY MANAGER Urinalysis, Cult If Indicated (11/11/24 17:03) Vital Signs 11/11/24 11/11/24 11/11/24 16:11 16:59 17:32 Temp 97.2 Pulse 88 89 83 Resp 18 20 20 B/P (MAP) 150/86 157/131 (140) 165/98 (120) Pulse Ox 97 92 95 O2 Flow Rate 0 0 0 Laboratory Tests Test 11/11/24 17:24 Urine Specimen Description Straight cath Urine Color Yellow Urine Clarity Clear Urine pH 6.0 Urine Specific [place] 1.020 Urine Protein Negative Urine Glucose (UA) Negative Urine Ketones Negative Urine Occult Blood Negative Urine Nitrite Negative Urine Bilirubin Negative Urine Urobilinogen 1.0 Urine Leukocyte Esterase Negative Urine Culture Indicated Not ind Volume Urine Centrifuged 10 ml Urine Comment Medical Decision Making Findings Patient presented with multiple medical complaints including ear pain: States her ear pain has been going on for years. Ear exam is within normal limits. Low clinical suspicion for otitis media, otitis external given no pain with manipulation of the ear. She complains of vaginal throbbing. Her external vaginal exam is within normal limits. There is no urinary tract infection. Low clinical suspicion for STI, PID or any other acute pelvic abnormality given the description of her pain being throbbing on the outside. She did have relatively poor hygiene and was provided with Shelly care given stool found in her perineal area. She complained of noting a Synthroid prescription. She states that she has been out of the medication for the past four years. Her past ER visits were reviewed. She was seen in March with complaints of running out of her Synthroid. She did receive a prescription at that time. She did not follow up. When asked she states that she has difficulty getting to her primary care provider. She is completely ambulatory in the hospital. She also states that she has a car. Encouraged her to follow up with her primary care provider for her chronic medical conditions. Prior to this conversation she had got up to walk away. Stated that she did not wish to stay in the hospital. Therefore, her TSH was not checked in preparation for given her a prescription. Again, she was encouraged to follow up with primary care provider. Departure Time of Disposition: 18:02 Disposition: HOME / SELF CARE / HOMELESS Impression: Primary Impression: Hypothyroid Additional Impressions: Discomfort of vagina Ear pain Condition: Stable Additional Instructions: You need to follow up with a primary care provider for treatment of your chronic hypothyroidism. This is very important. Last time you were here you received medication for this (Mar 2024). You need to follow up so that you can receive your medications on an ongoing basis. If you do not have a doctor call [facility] or go to the [facility] [place]. Your ear exam is normal. Your urine is without infection. Please follow up with your primary care provider within the next week. Return for new or worsening symptoms. Referrals: NO PRIMARY CARE PROVIDER (PCP) Education Educated: Patient Educated regarding: diagnosis, treatment, need for follow up Signature Scribe Signature: No scribe Attestation: The note accurately reflects work and decisions made by me.Sangeetha Garrido NP 11/11/24 18:45 This note was created with the assistance of voice recognition software whereby errors in grammar, syntax, and/or spelling may have occurred despite active proofreading efforts by the author. Please do not hesitate to contact the provider for clarification or for questions regarding the content of this document. No SANGEETHA LOPEZ NP Nov 11, 2024 18:04
== END 2024-11-11 18:24 | disposition home or self-care (01) ==
LOC: ER 15:44
DX: H92.09 Otalgia, unspecified ear (principal); E03.9 Hypothyroidism, unspecified; E11.9 Type 2 diabetes mellitus without complications; F17.290 Nicotine dependence, other tobacco product, uncomplicated; F15.90 Other stimulant use, unspecified, uncomplicated; G89.29 Other chronic pain; Z88.8 Allergy status to other drugs, medicaments and biological substances; Z90.710 Acquired absence of both cervix and uterus; Z79.899 Other long term (current) drug therapy; Z56.0 Unemployment, unspecified; Z72.89 Other problems related to lifestyle
CPT/HCPCS: 81003; 99284; C1758

== ENCOUNTER 2025-01-07 15:23 | Inpatient (IN) | payer MEDICAID ==
[~2025-01-07] VITALS: Ht 149.9 cm; Wt 97.7 kg
--- NOTE | 2025-01-07 16:13 | RADIOLOGY REPORT ---
EXAM: CT CT STROKE ALERT INDICATION: Stroke Alert TECHNIQUE: CT images of the head were obtained without administration of IV contrast. CT scans at this facility use dose modulation, iterative reconstruction, and/or weight based dosing when appropriate to reduce radiation dose to as low as reasonably achievable. COMPARISON: None FINDINGS: PARENCHYMA: No acute hemorrhage. There is no mass effect, midline shift, or herniation. There is preservation of the cho white differentiation. Mild scattered hypoattenuation along the periventricular, centrum semiovale, and deep white matter tracts, which are nonspecific however statistically most likely represent chronic microvascular ischemic change. Question small amount of hypoattenuation of the right posterior internal capsule which may represent lacunar infarction. VENTRICLES: No hydrocephalus. EXTRA-AXIAL SPACES: No extra-axial fluid collections. OTHER: The bony structures are intact. Visualized portions of the paranasal sinuses and mastoid air cells are clear. IMPRESSION: 1. Question small amount of hypoattenuation of the right posterior internal capsule which may represent lacunar infarction. Critical Findings: Stroke Alert Findings discussed with WAYNE VELAZQUEZ at 01/07/2025 6:10 PM [facility], who acknowledged receipt and understanding of the findings.
--- NOTE | 2025-01-07 16:13 | ELECTROCARDIOGRAPH REPORT ---
[facility] Test Date: 2025-01-07 Test Time: 16:12:20 Pat Name: DELORIS LIEBERMAN Department: [facility]-ER Patient ID: [facility]-[id number] Room: Gender: F Net Ui Developer: : 1975 Requested By: WAYNE VELAZQUEZ Order Number: [id number] Reading MD: Measurements Intervals [place] Rate: 96 P: 47 PA: 134 QRS: -55 QRSD: 113 T: 53 QT: 419 QTc: 530 Interpretive Statements Sinus rhythm Borderline IVCD with LAD Abnormal R-wave progression, late transition Inferior infarct, old Prolonged QT interval Please click the below link to view image of tracing.
[2025-01-07 16:18] LABS: MEAN PLATELET VOLUME 11.3 FL (7.4-10.4); RED CELL DISTRIBUTION WIDTH 15.1 % (11.5-14.5)
[2025-01-07 16:28] LABS: CREATININE 0.99 MG/DL (0.40-0.90); TOTAL CARBON DIOXIDE 33.7 MMOL/L (24-32); eCRCL 47 ML/MIN; eGFR 60 ML/MIN
[2025-01-07 16:29] LABS: APTT 25 SECONDS (22-32); INR 1.0 INR
[2025-01-07 16:31] LABS: BANDS% (MANUAL) 2.0 % (0-10); BASOPHILS % (MANUAL) 1.0 % (0-1); EOSINOPHILS % (MANUAL) 1.0 % (0-6); LYMPHOCYTES % (MANUAL) 27.0 % (21-51); METAMYLEOCYTES% (MANUAL) 2.0 % (0-0); MONOCYTES % (MANUAL) 7.0 % (2-12); NEUTROPHILS % (MANUAL) 60.0 % (42-75); PLATELET ESTIMATE NORMAL
--- NOTE | 2025-01-07 16:31 | Physician Documentation ---
Addendum CHIEF COMPLAINT/HPI: [HPI] REVIEW OF SYSTEMS: Constitutional: Denies chills, fatigue, fever, weight gain or weight loss. HEENT: Denies hearing loss, sinus pressure or visual changes. Respiratory: Denies cough, shortness of breath or wheezing. Cardiovascular: Denies chest pain, pain while walking (claudication), edema or palpitations. Gastrointestinal: Denies abdominal pain, blood in stool, constipation, diarrhea, heartburn, loss of appetite, nausea or vomiting. Genitourinary: Denies painful urination (dysuria), excessive amount of urine (polyuria) or urinary frequency. Metabolic/Endocrine: Denies cold intolerance, heat intolerance, excessive thirst (polydipsia) or excessive hunger (polyphagia). Neurological: Denies dizziness, extremity numbness, extremity weakness, headaches, seizures or tremors. Psychiatric: Denies anxiety or depression. Integumentary: Denies breast discharge, breast lump, hives, mole change(s), rash or skin lesion. Musculoskeletal: Denies back pain, joint pain, joint swelling or neck pain. Hematologic: Denies easily bleeding, easily bruises, lymphedema or issues with blood clots. Immunologic: Denies food allergies or seasonal allergies. PHYSICAL EXAMINATION: Vitals and nursing note reviewed. Constitutional: General: Patient is awake, alert, oriented x 4 in no acute distress and well appearing. Speech is clear and lucid. Appearance: Normal appearance. Patient is not ill-appearing, toxic-appearing or diaphoretic. HENT: Head: Normocephalic and atraumatic. Mouth: Mucous membranes are moist. Pharynx: Oropharynx is clear. Eyes: General: No scleral icterus. Extraocular Movements: Extraocular movements intact. Pupils: Pupils are equal, round, and reactive to light. Neck: Supple, no Kernig or Brudzinski sign. Cardiovascular: Rate and Rhythm: Normal rate and regular rhythm. Heart sounds: No murmur heard. Pulmonary: Effort: No respiratory distress. Breath sounds: No wheezing, rhonchi or rales. Abdominal: General: There is no distension. Palpations: There is no fluid wave, hepatomegaly or mass. Tenderness: There is no abdominal tenderness. There is no guarding. Musculoskeletal: General: No swelling or deformity. Skin: Coloration: Skin is not jaundiced. Findings: No erythema or rash. Neurological: Mental Status: Patient is alert. MEDICAL DECISION MAKING: [MDI] WAYNE VELAZQUEZ MD Jan 07, 2025 16:31
--- NOTE | 2025-01-07 16:34 | RADIOLOGY REPORT ---
CLINICAL INFORMATION: 49 years old, Female; Stroke Alert. TECHNIQUE: Single AP portable chest radiograph was obtained. COMPARISON: None FINDINGS: Lungs: Mild atelectasis in the lung bases. No focal consolidation. Cardiac: Heart size is within normal limits. Pulmonary vasculature: Unremarkable. Mediastinum/lindy: Unremarkable. Bones: No acute osseous abnormality identified. Other: No other significant findings. IMPRESSION: No evidence of acute disease in the chest.
--- NOTE | 2025-01-07 18:10 | Physician Documentation ---
History of Present Illness General Chief Complaint: Stroke Alert Stated Complaint: RIGHT NUMBNESS Time Seen by MD: 18:09 Primary Medical Doctor: lawrence callahan History of Present Illness Initial Comments The patient is a 49-year-old female with a history of hypothyroid who states she has not been taking her medication for a months and she has developed over last two days numbness on the right side of her body and some difficulty ambulating she states secondary to the numbness in the right side of her body. The patient has never had a stroke. The patient has multiple other complaints to include not having regular bowel movements and not having a bowel movement in several weeks. She also complains of constant facial congestion. She denies any actual weakness. She states the numbness started two days ago. The patient's symptoms are moderate and persistent. Medication Reconciliation Allergies: Coded Allergies: aripiprazole (Verified Allergy, Unknown, 11/11/24) lurasidone (Unverified Allergy, Unknown, 11/11/24) ziprasidone (Verified Allergy, Unknown, 11/11/24) Scheduled Cephalexin*Monohydrate* (Keflex*), 1 CAP PO QID Hydrocortisone (hydrocortisone 1% cream), 1 APPLIC TOP Q12H Levothyroxine Sodium (Levothyroxine Sodium), 1 TAB PO DAILY, (Reported) Levothyroxine Sodium (Levothyroxine), 1 CAP PO DAILY Neomy Sulf/Polymyx B Sulf/Hc (Cortisporin Otic Solution), 4 DROP EACH EAR Q6H Scheduled PRN Diphenhydramine Hcl (Benadryl), 25 MG PO Q6H PRN ITCHING PRN for itching Past Medical History Past Medical History: Diabetes, Thyroid (unspecified), Chronic Back Pain, Extremity Fracture Past Surgical History: hysterectomy Smoking: Non-Smoker Alcohol Use: Occasionally Drug Use: methamphetamine Lives with: Family Lives In: Home Occupation: unemployed Past Social History: Cigar smoker x4 a day Review of Systems All Other Systems at this time: Reviewed and Negative Physical Exam Physical Exam Vital Signs: Temperature: 98.5, Source: Temporal, Heart Rate: 2, Respiratory Rate: 18, BP: 129/96, Pulse Oximetry: 99, Weight: 97.730 Oxygen Flow Rate: 0 Physical Exam VITALS: Reviewed and as above. GENERAL: Alert, no apparent distress. HEENT: Normocephalic, atraumatic, PERRL, EOMI, dry mucosa, no erythema RESPIRATORY: Lungs clear, normal breath sounds, no respiratory distress. CHEST: No accessory muscle use, no retractions CV: Regular rate, rhythm, no edema, no murmur, No: JVD GI: Soft, non-tender, bowels sounds present, no rebound, guarding, or rigidity BACK: No CVA tenderness, or swelling MUSCULOSKELETAL: No deformities, no edema SKIN: Warm and dry, no rash NEURO: Oriented x4, No motor or sensory deficit PSYCH: Normal mood and affect, no agitation Progress Results/Orders Results/Orders Orders - OHPOPPY HOLLAND MD Urinalysis, Cult If Indicated (01/07/25 18:22) T3 Total (01/07/25 19:06) Page Hospitalist (01/07/25 ) Completed Orders - POPPY BELTRAN MD Potassium Cl Sr Tablet (K-Dur Tablet) (01/07/25 18:58) Levothyroxine 100mcg/5ml Inj. (Levothyro (01/07/25 19:05) Medications Received in ER Medications (Trade) Dose Ordered Sig/Eileen Route PRN Reason Start Time Stop Time Status Last Admin Dose Admin (K-DUR tablet) 40 meq ONCE STAT PO 01/07/25 18:58 01/07/25 18:59 DC 01/07/25 19:34 40 MEQ (LEVOTHYROXINE 100mcg/5 mL injection) 100 mcg ONCE ONCE IV 01/07/25 19:05 01/07/25 19:06 DC 01/07/25 19:54 100 MCG Vital Signs 01/07/25 01/07/25 01/07/25 15:31 18:56 20:00 Temp 98.5 Pulse 2 87 80 Resp 18 16 16 B/P (MAP) 129/96 126/93 (104) 145/87 (106) Pulse Ox 99 97 97 O2 Flow Rate 0 0 0 Laboratory Tests Test 01/07/25 15:45 01/07/25 17:41 White Blood Count 11.7 H Red Blood Count 4.03 L Hemoglobin 12.7 Hematocrit 37.2 Mean Corpuscular Volume 92.3 Mean Corpuscular Hemoglobin 31.6 H Mean Corpuscular Hemoglobin Concent 34.3 Red Cell Distribution Width 15.1 H Platelet Count 280 Mean Platelet Volume 11.3 H Neutrophils (%) (Auto) 66.3 Lymphocytes (%) (Auto) 27.5 Monocytes (%) (Auto) 3.3 Eosinophils (%) (Auto) 1.5 Basophils (%) (Auto) 1.4 H Neutrophils # (Auto) 7.7 Lymphocytes # (Auto) 3.2 Monocytes # (Auto) 0.4 Eosinophils # (Auto) 0.2 Basophils # (Auto) 0.2 CBC Comment Differential Total Cells Counted 100 Neutrophils % (Manual) 60.0 Band Neutrophils % 2.0 Lymphocytes % (Manual) 27.0 Monocytes % (Manual) 7.0 Eosinophils % (Manual) 1.0 Basophils % (Manual) 1.0 Metamyelocytes % 2.0 H Platelet Estimate Normal Red Blood Cell Morphology Perf Basophilic Stippling Anisocytosis 1+ Prothrombin Time 10.2 INR International Normalized Ratio 1.0 Activated Partial Thromboplast Time 25 Coagulation Comments Sodium Level 135 Potassium Level 3.3 L Chloride Level 96 L Carbon Dioxide Level 33.7 H Anion Gap 5 L Blood Urea Nitrogen 17 Creatinine 0.99 H Estimated GFR/1.73 m2 60 BUN/Creatinine Ratio 17.2 Glucose Level 228 H Calcium Level 9.4 Albumin 3.7 Thyroid Stimulating Hormone (TSH) 192.45 H Free Thyroxine < 0.20 L Chemistry Comments EKG/XRAY/CT/US/VASC/MRI Chest X-Ray : Additional Comments Patient: DELORIS LIEBERMAN Medical Record: [id number] : 1975, Age: 49 Sex: Female Location: ER Patient Status: [facility] ER Service Date/Time: 01/07/251599 Ordering Physician: WAYNE VELAZQUEZ MD Exam: CHEST,SINGLE VIEW CLINICAL INFORMATION: 49 years old, Female; Stroke Alert. TECHNIQUE: Single AP portable chest radiograph was obtained. COMPARISON: None FINDINGS: Lungs: Mild atelectasis in the lung bases. No focal consolidation. Cardiac: Heart size is within normal limits. Pulmonary vasculature: Unremarkable. Mediastinum/lindy: Unremarkable. Bones: No acute osseous abnormality identified. Other: No other significant findings. IMPRESSION: No evidence of acute disease in the chest. Electronically Signed by:STEWART NINO DO Date & Time: 01/07/251631 Dictated by: STEWART NINO DO Dictation date and time: 01/07/25 163 Primary Care Provider: NO PRIMARY CARE PROVIDER cc: WAYNE VELAZQUEZ MD ~ CT : Impression Patient: DELORIS LIEBERMAN Medical Record: [id number] [facility] : 1975, Age: 49 Sex: Female Location: ER Patient Status: REG ER Service Date/Time: 01/07/251532 Ordering Physician: WAYNE VELAZQUEZ MD Exam: CT STROKE ALERT EXAM: CT CT STROKE ALERT INDICATION: Stroke Alert TECHNIQUE: CT images of the head were obtained without administration of IV contrast. CT scans at this facility use dose modulation, iterative reconstruction, and/or weight based dosing when appropriate to reduce radiation dose to as low as reasonably achievable. COMPARISON: None FINDINGS: PARENCHYMA: No acute hemorrhage. There is no mass effect, midline shift, or herniation. There is preservation of the cho white differentiation. Mild scattered hypoattenuation along the periventricular, centrum semiovale, and deep white matter tracts, which are nonspecific however statistically most likely represent chronic microvascular ischemic change. Question small amount of hypoattenuation of the right posterior internal capsule which may represent lacunar infarction. VENTRICLES: No hydrocephalus. EXTRA-AXIAL SPACES: No extra-axial fluid collections. OTHER: The bony structures are intact. Visualized portions of the paranasal s inuses and mastoid air cells are clear. IMPRESSION: 1. Question small amount of hypoattenuation of the right posterior internal capsule which may represent lacunar infarction. Critical Findings: Stroke Alert Findings discussed with WAYNE VELAZQUEZ at 01/07/2025 6:10 PM FERRY OPERATOR, who acknowledged receipt and understanding of the findings. Electronically Signed by:PAVAN BAPTISTE MD Date & Time: 01/07/251609 Dictated by: PAVAN BAPTISTE MD Dictation date and time: 01/07/25 161 Primary Care Provider: NO PRIMARY CARE PROVIDER cc: WAYNE VELAZQUEZ MD ~ Departure Impression: Primary Impression: Hypokalemia Additional Impression: Hypothyroid Qualified Codes: E03.9 - Hypothyroidism, unspecified Referrals: NO PRIMARY CARE PROVIDER (PCP) POPPY BELTRAN MD Jan 07, 2025 18:10
[2025-01-07] MEDS: potassium Cl 20 mEq SR tablet PO STA (19:34)
[2025-01-07] MEDS: LEVOTHYROXINE SODIUM 100 MCG/5 ML injection IV ONE ×2 (19:54→23:42)
[2025-01-07] MEDS ORDERED: magnesium hydroxide 30ml (MOM) UD suspension PO PRN (23:10)
[2025-01-07] MEDS ORDERED: magnesium sulf-water 2g/50mL 50 ML IV PRN (23:10)
[2025-01-07] MEDS ORDERED: magnesium Cl slow-release 64mg tablet PO PRN (23:10)
[2025-01-07] MEDS ORDERED: potassium Cl 20 mEq SR tablet PO PRN ×2 (23:10)
[2025-01-07] MEDS ORDERED: HYDROcodone/acetaminophen 5mg/325mg tablet PO PRN (23:10)
[2025-01-07] MEDS ORDERED: mag hydrox/Alum hydrox/simeth 30ml oral suspension PO PRN (23:10)
[2025-01-07] MEDS ORDERED: magnesium sulf-water 4G/100mL 100 ML IV PRN (23:10)
[2025-01-07] MEDS ORDERED: potassium Cl 40MEQ/1/2NS 520ml 520 ML IV PRN (23:10)
[2025-01-07] MEDS ORDERED: ondansetron/PF 4mg/2ml inj IV PRN (23:10)
[2025-01-07] MEDS: levoTHYROXINE sod inj. 100mcg/5 ml vial ONE (23:42)
[2025-01-08 00:27] LABS: APTT 25 SECONDS (22-32); INR 1.0 INR
[2025-01-08 00:29] LABS: CREATININE 1.11 MG/DL (0.40-0.90); TOTAL CARBON DIOXIDE 35.8 MMOL/L (24-32); eCRCL 42 ML/MIN; eGFR 52 ML/MIN
[2025-01-08 00:36] LABS: PHOSPHORUS 3.8 MG/DL (2.3-4.5); PRO BRAIN NATRIURETIC PEPTIDE 90 PG/ML (0-125)
[2025-01-08 00:50] LABS: CHOL/HDL RATIO 9.7 (0.00-4.99); LDL CHOLESTEROL 275 MG/DL (50-100)
--- NOTE | 2025-01-08 01:07 | HISTORY AND PHYSICAL-Residence ---
History & Physical Providers to CC Resident Creating Document: ALLA XAVIER BOLAÑOS, RES ~ History of Present Illness Primary Medical Doctor: lawrence callahan Reason for Admit\Complaint: Numbness on right side of the body History of Present Illness RIGHT SIDED NUMBNESS AND TINGLING, MOUTH TINGLING DELORIS LIEBERMAN is 49 years old female with history of hypothyroidism came to the ED with chief complaint of gradual progressive numbness on right side of her body, tingling around mouth associated with difficulty in ambulation. Patient also reports generalized weakness, fatigue, occasional headaches, cold intolerance, hoarseness in the voice. Patient reports that she gaining weight from last 5-7 years. Patient states she has sleep apnea but not using CPAP at home. Patient denies lightheadedness, acute weakness, constipation, chest pain, swelling of abdomen, eyes and legs, difficulty in breathing, diarrhea, , loss of hair. Patient has history of depression and anxiety and she is taking medication. Patient came to the ED multiple times for the hypothyroidism but she is not taking thyroid medications from the past 4 years. Allergies: Coded Allergies: aripiprazole (Verified Allergy, Unknown, 11/11/24) lurasidone (Unverified Allergy, Unknown, 11/11/24) ziprasidone (Verified Allergy, Unknown, 11/11/24) Home Medications Home Medications Active Levothyroxine (Levothyroxine Sodium) 150 Mcg Capsule 1 Cap PO DAILY 30 Days Keflex* (Cephalexin HCl) 500 Mg Capsule 1 Cap PO QID Cortisporin Otic Solution (Neomy Sulf/Polymyx B Sulf/Hc) 3.5 Mg/Ml-10,000 Unit/Ml-1 % Drops 4 Drop EACH EAR Q6H 7 Days hydrocortisone 1% cream (Hydrocortisone) 1 Applic Cream..g. 1 Applic TOP Q12H 5 Days apply to affected area(s) Benadryl (Diphenhydramine HCl) 25 Mg Capsule 25 Mg PO Q6H PRN ITCHING PRN 5 Days Reported Levothyroxine Sodium 150 Mcg Tablet 1 Tab PO DAILY 30 Days Past Medical History Past Medical History Hypothyroidism Chronic intermittent back pain Past Surgical History Surgical History Comment Hysterectomy Past Social History Social History Comment Smokes 1-2 cigarettes per day Drinks alcohol occasionally She takes methamphetamine occasional Lives with friend in a car Unemployed Smoking: Non-Smoker Alcohol Use: Occasionally Drug Use: Methamphetamine Lives with: Family Lives In: Home Occupation: unemployed Past Social History: Cigar smoker x4 a day ROS All Other Systems: Reviewed and Negative ROS Constitutional: No fever, chills, dizziness, weight gain or loss, night sweats Eyes: No pain, erythema, discharge, blurring of vision ENT: No sore throat, epistaxis, tinnitus Cardiovascular:No chest pain, palpitations, syncope, lower extremity edema, paroxysmal nocturnal dyspnea Respiratory: No Shortness of breath and cough, No hemoptysis. Gastrointestinal:No Abdominal pain, vomiting,nausea and melena. Normal appetite. No constipation,diarrhea, hematemesis, Musculoskeletal: No swelling or edema of extremities. Integumentary: No change in skin, hair, nails. No swelling, bruising, abrasions Neurologic: No weakness,No headache, neck pain, numbness or tingling of the extremities, Psychiatric: No delusions, depression, loss of interest in normal activity or change in sleep pattern, hallucinations, suicidal ideations Endocrine: Reports generalized weakness, fatigue, occasional headaches, cold intolerance, hoarseness in the voice. polydipsia, polyuria, change in appetite, heat or cold intolerance, sweating, dry skin Hematological: No bleeding, petechiae, bruising Allergies: No asthma or urticaria Exam Vitals: Vital Signs Date Time Temp Pulse Resp B/P (MAP) Pulse Ox O2 Delivery O2 Flow Rate FiO2 01/07/25 23:49 80 14 123/67 (85) 97 0 01/07/25 15:31 98.5 General: Moderately obese, Awake , alert and oriented to time,place, person, not in distress HEENT: Atraumatic, normocephalic, PERRLA, EOMI, anicteric sclera ; pink conjunctiva, dry mucos membranes Neck: Trachea midline. Supple, normal range of motion, no JVD, no lymphadenopathy Chest and Respiratory: Equal breath sounds bilaterally, no tachypnea, wheezing, ronchi,rubs .Chest wall is symmetric and without deformity. Cardiac: S1, S2 heard,Regular rate and rhythm, no murmurs ,no gallops, no rubs. Abdomen: Soft, No tenderness, No guarding or rigidity, Velasco's sign negative. normal bowel sounds x4 quadrant, no hepatosplenomegaly MSK: Range of motion of all extremities are normal. There is no joint pain or joint swelling or joint erythema. There is no muscle pain or tenderness or swelling. Extremities: warm, well-perfused, No cyanosis, clubbing, 2+ pulses felt, grade 2+ pitting edema Neurological: Mental status exam: alert and consciousness, orientation, memory, speech - Cranial nerve test: Cranial nerves II-XII intact. - Motor system: Normal Nutrition, normal tone, Power 5/5, no involuntary movements - Sensory system: Intact - Reflex testing: Biceps, triceps and knee reflexes 2+ - Cerebellar: Normal Skin: Warm and dry Psychiatry: Affect and mood are normal Diagnostic Data Last Recorded Lab Results: 01/07/25 1545 01/08/25 0004 Diagnostic Data: Laboratory Tests Test 01/08/25 00:04 Prothrombin Time 9.8 SECONDS (9.0-12.0) INR International Normalized Ratio 1.0 INR Activated Partial Thromboplast Time 25 SECONDS (22-32) Coagulation Comments Advance Care Planning Advanced Care plannin - 30 Minutes Additional Plan Myxedema Patient is not compliant with thyroid medication TSH is 192, free T4 is < 0.2 Follow up on total T3 levels IV levothyroxine 150 mcg was given in the ER Started on p.o. levothyroxine 150 mcg daily Follow up on morning cortisol level Follow up on creatinine kinase levels Type 2 MS Troponin is 116 Patient denies chest pain, EKG shows no ST changes/arrhythmias. Follow up on 2D echocardiogram Follow up on serial troponin levels Follow up on UDS Hypokalemia Potassium is 3.3 Replacement per protocol Monitor BMP levels Mild JOSUE likely prerenal due to dehydration Creatinine is 0.99, BUN 20, GFR 52 IV NS @ 60 ml/hr Monitor BMP levels Poorly controlled, Type 2 DM with hyperglycemia HB A1c is 8.4, glucose is 228 on glucometer Started on Lantus 10 units Lispro 5 units t.i.d. before food Hypoglycemia/hyperglycemia protocol Nutrition consult Hyperlipidemia LDL is 275 Started on atorvastatin 80 mg daily Follow up on urinalysis, UDS, orthostatic vitals Code status: Full code DVT prophylaxis : Heparin Nutrition: Carb Controlled diet, nutrition consult Physical therapy: ordered Line/tube: PIV Prognosis: Guarded Disposition: Continue medical management, PT evaluation & discharge plan Resident attestation The above note has been reviewed and supervised by a senior resident PGY2/PGY3 Patient was seen, examined and discussed with the attending physician Alta Xavier MD Internal Medicine Resident, PGY 1 Date of Service: Jan 08, 2025 Billing Provider: NORA SAMUEL MD Assessment/Plan Assessment agreed with resident switch to PO levothyroxine IM 3 ALLA XAVIER, RES Jan 08, 2025 01:07 NORA SAMUEL MD Jan 08, 2025 04:17
[2025-01-08] MEDS ORDERED: DEXTROSE 15 GM of carb/4 tabs (each vial/BOTTLE has 4 tablets) PO PRN ×2 (01:30)
[2025-01-08] MEDS ORDERED: glucagon, human recombinant 1mg kit SUBCUT PRN (01:30)
[2025-01-08] MEDS ORDERED: dextrose 50%-water 50ml dispensing syringe IV PRN ×2 (01:30)
[2025-01-08] MEDS: normal saline 1000ml 1,000 ML IV SCH (03:41)
[2025-01-08 05:56] VITALS: BP 123/78; PULSE 78; RESP 16; TEMP 98.6; O2SAT 97
[2025-01-08] MEDS: pantoprazole 40mg Tablet.DR PO ONE (06:05)
[2025-01-08] MEDS ORDERED: INSULIN LISPRO 100 UNIT/ML INSULN.PEN MULTI-DOSE SQ SCH (07:00)
[2025-01-08] MEDS: normal saline 1000ML IV soln IVB ONE (07:01)
[2025-01-08 07:23] LABS: MEAN PLATELET VOLUME 11.5 FL (7.4-10.4); RED CELL DISTRIBUTION WIDTH 15.0 % (11.5-14.5)
[2025-01-08] MEDS: K and/or MAG REPLACEMENT MC SCH (07:45)
[2025-01-08] MEDS: levoTHYROXINE 75mcg tablet PO SCH (07:59)
[2025-01-08] MEDS: docusate sod 100mg capsule PO SCH (08:00)
[2025-01-08] MEDS ORDERED: LEVOTHYROXINE SODIUM 100 MCG/5 ML injection IV SCH (08:00)
[2025-01-08] MEDS: INSULIN LISPRO 100 UNIT/ML INSULN.PEN MULTI-DOSE SQ SCH (08:00)
[2025-01-08] MEDS: heparin, porcine 5000 units/ml vial SQ SCH (08:00)
[2025-01-08 08:05] LABS: LEUKOCYTE ESTERASE ,URINE NEGATIVE (Neg); NITRITES, URINE NEGATIVE (Neg); OCCULT BLOOD,URINE NEGATIVE (Neg)
[2025-01-08 08:16] LABS: URINE AMPHETAMINE SCREEN POSITIVE (Neg); URINE BARBITUATE SCREEN NEGATIVE (Neg); URINE BENZODIAZEPINES SCREEN NEGATIVE (Neg); URINE CANNABINOID SCREEN NEGATIVE (Neg); URINE COCAINE SCREEN NEGATIVE (Neg); URINE METHADONE SCREEN NEGATIVE (Neg); URINE OPIATE SCREEN NEGATIVE (Neg); URINE PHENCYCLIDINE SCREEN NEGATIVE (Neg)
[2025-01-08] MEDS ORDERED: aspirin 81mg, enteric-coated 1 TAB TABLET.DR PO SCH (08:40)
[2025-01-08 08:50] LABS: UA COLLECTION TYPE CLN CATCH MIDSTREAM
[2025-01-08] MEDS ORDERED: insulin glargine (Lantus) pen - multi-dose SQ SCH (21:00)
== END 2025-01-08 10:07 | disposition left against medical advice (07) | DRG 425 ==
LOC: ER 15:23 → ED HOLD 23:15
PROVIDERS: ADMIT Internal Medicine Critical Care Medicine; ATTEND Internal Medicine
DX: E87.6 Hypokalemia (principal); I21.A1 Myocardial infarction type 2; N17.9 Acute kidney failure, unspecified; F32.A Depression, unspecified; E03.8 Other specified hypothyroidism; E11.65 Type 2 diabetes mellitus with hyperglycemia; Z53.21 Procedure and treatment not carried out due to patient leaving prior to being seen by health care provider; E78.5 Hyperlipidemia, unspecified; E11.9 Type 2 diabetes mellitus without complications; F17.210 Nicotine dependence, cigarettes, uncomplicated; F41.9 Anxiety disorder, unspecified; Z90.710 Acquired absence of both cervix and uterus; Z91.148 Patient's other noncompliance with medication regimen for other reason; Z88.8 Allergy status to other drugs, medicaments and biological substances
CPT/HCPCS: 36415; 70450; 71045; 80048; 80053; 80061; 80305; 81003; 82550; 82948; 83036; 83735; 83880; 84100; 84439; 84443; 84480; 84484; 85007; 85025; 85610; 85730; 93005; 99285; G0378; J1815; J3490; J7030

== ENCOUNTER 2025-01-09 10:18 | Emergency (ER) | payer MEDICAID ==
[~2025-01-09] VITALS: Ht 160 cm; Wt 113.4 kg
[2025-01-09 10:25] VITALS: BP 162/87; PULSE 95; RESP 18; TEMP 98.4; O2SAT 99
--- NOTE | 2025-01-09 10:28 | Physician Documentation ---
History of Present Illness Stated Complaint: LOW THYROID, CAN'T HOLD DOWN FOOD Time Seen by MD: 10:23 Primary Medical Doctor: lawrence Mccall Patient has a 41-year-old female that was seen here in the emergency department yesterday and left after her workup prior to diagnosis. Patient is presenting again today with the same symptoms patient reports chest discomfort shortness of breath generally feeling unwell. Yesterday the patient's labs indicated elevated troponins elevated TSH with the patient has not been taking her medications or is unable to take medications unclear at this time. Patient reports she would like to be evaluated again and will stay for diagnosis. Medication Reconciliation Allergies: Coded Allergies: aripiprazole (Verified Allergy, Unknown, 11/11/24) lurasidone (Unverified Allergy, Unknown, 11/11/24) ziprasidone (Verified Allergy, Unknown, 11/11/24) Scheduled Cephalexin*Monohydrate* (Keflex*), 1 CAP PO QID Hydrocortisone (hydrocortisone 1% cream), 1 APPLIC TOP Q12H Levothyroxine Sodium (Levothyroxine Sodium), 1 TAB PO DAILY, (Reported) Levothyroxine Sodium (Levothyroxine), 1 CAP PO DAILY Neomy Sulf/Polymyx B Sulf/Hc (Cortisporin Otic Solution), 4 DROP EACH EAR Q6H Scheduled PRN Diphenhydramine Hcl (Benadryl), 25 MG PO Q6H PRN ITCHING PRN for itching Past Medical History Past Medical History: Diabetes, Thyroid (unspecified), Chronic Back Pain, Extremity Fracture Past Surgical History: hysterectomy Alcohol Use: Occasionally Drug Use: methamphetamine Lives with: Family Lives In: Home Occupation: unemployed Past Social History: Cigar smoker x4 a day Departure Referrals: NO PRIMARY CARE PROVIDER (PCP) VIVIANA HOLLOWAY Jan 09, 2025 10:28
== END 2025-01-09 10:47 | disposition left against medical advice (07) ==
LOC: ER 10:20
DX: R07.9 Chest pain, unspecified (principal); R06.02 Shortness of breath; E11.9 Type 2 diabetes mellitus without complications; G89.29 Other chronic pain; F17.290 Nicotine dependence, other tobacco product, uncomplicated; F15.90 Other stimulant use, unspecified, uncomplicated; Z88.8 Allergy status to other drugs, medicaments and biological substances; Z90.710 Acquired absence of both cervix and uterus; Z79.899 Other long term (current) drug therapy; Z56.0 Unemployment, unspecified; Z72.89 Other problems related to lifestyle; Z53.21 Procedure and treatment not carried out due to patient leaving prior to being seen by health care provider
CPT/HCPCS: 99281

== ENCOUNTER 2025-01-10 15:15 | Emergency (ER) | payer MEDICAID ==
[~2025-01-10] VITALS: Ht 149.9 cm; Wt 111.9 kg
[2025-01-10 15:34] VITALS: BP 168/91; PULSE 100; RESP 18; TEMP 97.8; O2SAT 98
--- NOTE | 2025-01-10 15:46 | Physician Documentation ---
HPI ~ General Chief Complaint: Medication Refill Stated Complaint: MULTIPLE MED COMPLAINTS Time Seen by MD: 16:12 Primary Medical Doctor: lawrence callahan History of Present Illness HPI Comments Patient is a 49-year-old female that presents to the emergency department for the 3rd time in 4 days for evaluation for a medication refill. Patient reports that she takes Synthroid she has a medication refill waiting for had her at [facility]. But is asking us for refill of the same medication at this time. Patient was worked up and evaluated 2 other times here in the emergency department and left against medical advice each time. Today the patient was educated in triage that she needs to be admitted to the hospital for elevated TSH at this time. Patient is alert and oriented x 3. Patient expresses that she does not wish to come into the emergency department for an additional evaluation or an evaluation for admission or any additional lab work or diagnostics at this time she would like to have her medication refilled and go home. 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 Patient was educated on the need to stay in the hospital to be treated for her grossly elevated TSH and the medical necessity at this time. Patient was also educated on the potential catastrophic effects of not treating elevated TSH and that she is very sick at this time. Patient refuses to stay reports that she is leaving she will come again in the morning. Medication Reconciliation Allergies: Coded Allergies: aripiprazole (Verified Allergy, Unknown, 01/10/25) lurasidone (Unverified Allergy, Unknown, 01/10/25) ziprasidone (Verified Allergy, Unknown, 01/10/25) Scheduled Cephalexin*Monohydrate* (Keflex*), 1 CAP PO QID Hydrocortisone (hydrocortisone 1% cream), 1 APPLIC TOP Q12H Levothyroxine Sodium (Levothyroxine Sodium), 1 TAB PO DAILY, (Reported) Levothyroxine Sodium (Levothyroxine), 1 CAP PO DAILY Neomy Sulf/Polymyx B Sulf/Hc (Cortisporin Otic Solution), 4 DROP EACH EAR Q6H Scheduled PRN Diphenhydramine Hcl (Benadryl), 25 MG PO Q6H PRN ITCHING PRN for itching Past Medical History Past Medical History: Diabetes, Thyroid (unspecified), Chronic Back Pain, Extremity Fracture Past Surgical History: hysterectomy Alcohol Use: Occasionally Drug Use: methamphetamine Lives with: Family Lives In: Home Occupation: unemployed Past Social History: Cigar smoker x4 a day Physical Exam Physical Exam Vital Signs: Temperature: 97.8, Source: Temporal, Heart Rate: 100, Respiratory Rate: 18, BP: 168/91, Pulse Oximetry: 98, Weight: 111.900 Oxygen Flow Rate: 0 Progress Results/Orders Results/Orders Vital Signs 01/10/25 15:34 Temp 97.8 Pulse 100 Resp 18 B/P (MAP) 168/91 Pulse Ox 98 O2 Flow Rate 0 Departure Referrals: NO PRIMARY CARE PROVIDER (PCP) VIVIANA HOLLOWAY GENERAL SUPERINTENDENT Jan 10, 2025 15:46
== END 2025-01-10 18:06 | disposition left against medical advice (07) ==
LOC: ER 15:15
DX: F17.290 Nicotine dependence, other tobacco product, uncomplicated (principal); E11.9 Type 2 diabetes mellitus without complications; F15.90 Other stimulant use, unspecified, uncomplicated; G89.29 Other chronic pain; Z76.0 Encounter for issue of repeat prescription; Z79.899 Other long term (current) drug therapy; Z56.0 Unemployment, unspecified; Z72.89 Other problems related to lifestyle; Z90.710 Acquired absence of both cervix and uterus; Z88.8 Allergy status to other drugs, medicaments and biological substances; Z53.21 Procedure and treatment not carried out due to patient leaving prior to being seen by health care provider
CPT/HCPCS: 99281

== ENCOUNTER 2025-01-12 12:45 | Emergency (ER) | payer MEDICAID ==
[~2025-01-12] VITALS: Ht 149.9 cm; Wt 112.8 kg
[2025-01-12 12:56] VITALS: BP 125/86; PULSE 91; RESP 16; TEMP 98.7; O2SAT 98
--- NOTE | 2025-01-12 14:45 | Physician Documentation ---
History of Present Illness ~ Chief Complaint: Back Pain Stated Complaint: ABNORMAL LABS Time Seen by MD: 13:58 OK to notify your PCP?: Yes Primary Medical Doctor: lawrence callahan Source: patient Mode of Arrival: POV Exam Limitations: no limitations HPI 49-year-old female that presents to the emergency department for the 4th time in 4 days for evaluation for a medication refill. Patient reports that she takes Synthroid she has a medication refill waiting for had her at [facility], but is asking us for give her a prescription for levothyroxine the generic synthroid. Patient then states she is having back pain, states pain is lower back. No precipitating injury or event. States had xrays at [facility] already for this. Pain is localized to lspine. No urinary retention or bowel or bladder function. Medication Reconciliation Allergies: Coded Allergies: aripiprazole (Verified Allergy, Unknown, 01/12/25) lurasidone (Unverified Allergy, Unknown, 01/12/25) ziprasidone (Verified Allergy, Unknown, 01/12/25) Scheduled Cephalexin*Monohydrate* (Keflex*), 1 CAP PO QID Hydrocortisone (hydrocortisone 1% cream), 1 APPLIC TOP Q12H Levothyroxine Sodium (Levothyroxine Sodium), 1 TAB PO DAILY, (Reported) Levothyroxine Sodium (Levothyroxine), 1 CAP PO DAILY Neomy Sulf/Polymyx B Sulf/Hc (Cortisporin Otic Solution), 4 DROP EACH EAR Q6H Scheduled PRN Diphenhydramine Hcl (Benadryl), 25 MG PO Q6H PRN ITCHING PRN for itching Past Medical History Past Medical History: Diabetes, Thyroid (unspecified), Chronic Back Pain, Extremity Fracture Past Surgical History: hysterectomy Alcohol Use: Occasionally Drug Use: methamphetamine Lives with: Family Lives In: Home Occupation: unemployed Past Social History: Cigar smoker x4 a day Review of Systems All Other Systems at this time: Reviewed and Negative Physical Exam Physical Exam Vital Signs: Temperature: 98.7, Source: Oral, Heart Rate: 91, Respiratory Rate: 16, BP: 125/86, Pulse Oximetry: 98, Weight: 112.800 Oxygen Flow Rate: 0 Physical Exam GENERAL: Alert, no acute distress. HEENT: NCAT, EOMI, PERRL, normal oropharynx, moist oral mucosa. NECK: Supple, trachea midline. CARDIAC: Regular rate and rhythm, no murmurs, rubs, or gallops. Equal distal p ulses. No lower extremity edema, cap refill less than 2 seconds. RESPIRATORY: Equal breath sounds, clear to auscultation bilaterally, no respiratory distress. GASTROINTESTINAL: Non distended, soft, nontender, No guarding or rebound. MUSCULOSKELETAL: Normal range of motion, nontender, no swelling. Normal gait. NEUROLOGICAL: Awake, alert, and oriented x 3. SKIN: Warm/dry, no pallor, no rash. PSYCH: Alert and appropriate. Affect congruent with mood. Speech is clear. Good eye contact. Progress Results/Orders Results/Orders Vital Signs 01/12/25 12:56 Temp 98.7 Pulse 91 Resp 16 B/P (MAP) 125/86 Pulse Ox 98 O2 Flow Rate 0 Medical Decision Making Additional information obtaine: old records Findings prior records from prior visits Differential Dx:Considerations: AAA, Aortic dissection, , Appendicitis, Bowel obstruction, Cholelithiasis, Cholangitis, DJD, Ectopic , Fracture, Hepatitis, HNP, Musculoskeletal pain, Pancreatitis, Pyelonephritis, Strain, Urinary obstruction, Urolithiasis, Ovarian torsion, Renal infarction, Urinary tract infection Departure Time of Disposition: 14:54 Disposition: 01 HOME / SELF CARE / HOMELESS Impression: Primary Impression: Low back pain Qualified Codes: M54.50 - Low back pain, unspecified Additional Impression: Medication requested Condition: Stable Discharge Instructions: Acute Back Pain, Adult Additional Instructions: I went into your medical record at [facility] but did not see any xrays of your lspine so I am not sure where these xrays where done, but there is no evidence of needing to be admitted for your back or a neurosurgical issue. F/u with pcp next week. re: thyroid medication management and switching the form of thyroid you are on, this is handled by your PCP. Referrals: NO PRIMARY CARE PROVIDER (PCP) Education Educated: Patient Educated regarding: diagnosis, treatment, need for follow up Signature Scribe Signature: x Attestation: RICHIE Saul Jan 12, 2025 14:44
== END 2025-01-12 15:29 | disposition home or self-care (01) ==
LOC: ER 12:45
DX: M54.50 Low back pain, unspecified (principal); E11.9 Type 2 diabetes mellitus without complications; F17.290 Nicotine dependence, other tobacco product, uncomplicated; Z76.0 Encounter for issue of repeat prescription; Z90.710 Acquired absence of both cervix and uterus; F15.90 Other stimulant use, unspecified, uncomplicated; Z88.8 Allergy status to other drugs, medicaments and biological substances; Z79.899 Other long term (current) drug therapy
CPT/HCPCS: 99282